=== PATIENT | female | born 1985 | race American Indian/Alaskan Native ===

== ENCOUNTER 2019-08-11 13:34 | Emergency (ER) | payer SELFPAY ==
--- NOTE | 2019-08-11 14:22 | Emergency Department Report ---
Blank Doc - Documentation Documentation: 33-year-old female that presents with upper abdominal pain. This initial assessment/diagnostic orders/clinical plan/treatment(s) is/are subject to change based on patient's health status, clinical progression and re- assessment by fellow clinical providers in the ED. Further treatment and workup at subsequent clinical providers discretion. Patient/guardians urged not to elope from the ED as their condition may be serious if not clinically assessed and managed. Initial orders include: 1- Patient sent to [facility] for further evaluation and treatment 2- labs 3- UA
[2019-08-11 15:24] LABS: Bacteria,Urine 2+ /HPF (Negative); Bilirubin,Urine NEG (Negative); Blood,Urine NEG (Negative); Color,Urine Yellow (Yellow); Mucus,Urine 2+ /HPF; Protein,Urine <15 mg/dL mg/dL (Negative); Urobilinogen,Urine < 2.0 mg/dL (<2.0)
[2019-08-11 15:33] LABS: Hematocrit 30.2 % (30.3-42.9); Hemoglobin 9.2 gm/dl (10.1-14.3); Mean Corpuscular HGB Conc 31 % (30-34); Platelet Count 354 K/mm3 (140-440); Red Blood Count 5.35 M/mm3 (3.65-5.03)
[2019-08-11 15:37] LABS: Mean Corpuscular Volume 56 fl (79-97); Red Cell Distribution Width 22.4 % (13.2-15.2)
[2019-08-11 15:49] LABS: Alanine Aminotransferase 45 units/L (7-56); Albumin 3.9 g/dL (3.9-5); BUN/Creatinine Ratio 13; Blood Urea Nitrogen 8 mg/dL (7-17); Calcium 8.8 mg/dL (8.4-10.2); Hemolysis Index 2
--- NOTE | 2019-08-11 16:32 | Emergency Department Report ---
HPI - General Chief Complaint: Abdominal Pain Time Seen by Provider: 08/11/19 14:21 - HPI HPI: 33-year-old -[place]ag[place] female presents to the emergency department with complaint of a few days of some vaginal irritation, and malodorous vaginal discharge. She denies any fever, nausea, vomiting, dysuria, vaginal bleeding. She has not taken anything for her symptoms prior to presentation. The patient also complains of some sharp pains to the right lower rib cage that has been going on for weeks if not longer. She denies any shortness of breath, fall or trauma. She has not taken anything for her symptoms prior to presentation. No past medical history. No PCP or HAND SEWER. ED Past Medical Hx - Past Medical History Previous Medical History?: No - Surgical History Past Surgical History?: No - Social History Smoking Status: Never Smoker Substance Use Type: Marijuana - Medications Home Medications: Home Medications Medication Instructions Recorded Confirmed Last Taken Type Fluconazole [Diflucan TAB] 150 mg PO ONCE #1 tablet 08/11/19 Unknown Rx Nitrofurantoin [place]/M-Cryst 100 mg PO Q12HR #14 capsule 08/11/19 Unknown Rx [Macrobid CAP] metroNIDAZOLE [Flagyl] 500 mg PO Q12HR #14 tab 08/11/19 Unknown Rx ED Review of Systems ROS: Stated complaint: LOWER ABD PAIN Other details as noted in HPI Comment: All other systems reviewed and negative Constitutional: denies: chills, fever Respiratory: denies: cough, shortness of breath Cardiovascular: denies: palpitations, edema Gastrointestinal: abdominal pain. denies: vomiting Genitourinary: discharge. denies: dysuria Skin: denies: rash, lesions Physical Exam - Physical Exam Physical Exam: GENERAL: The patient is well-developed well-nourished. HEENT: Normocephalic. Atraumatic. Patient has moist mucous membranes. EYES: Extraocular motions are intact. NECK: Supple. Trachea is midline. CHEST/LUNGS: Clear to auscultation. There is no respiratory distress noted. HEART/CARDIOVASCULAR: Regular. There is no tachycardia. ABDOMEN: Abdomen is soft. No tenderness to palpation. No guarding. Patient has normal bowel sounds. There is no abdominal distention. SKIN:Skin is warm and dry. NEURO: The patient is awake, alert, and cooperative. The patient has no focal neurologic deficits. Normal speech. MUSCULOSKELETAL: There is no tenderness or deformity. There is no limitation range of motion. There is no evidence of acute injury. PELVIC: There is moderate malodorous white discharge seen in the vagina. No obvious rash or lesions. ED Course - Reevaluation(s) Reevaluation #1: 08/11/19 20:03 Pelvic examination done with information technology analyst at bedside for assistance and christmas tree contractor. ED Medical Decision Making - Lab Data Result diagrams: 08/11/19 15:07 08/11/19 15:07 - Radiology Data Radiology results: image reviewed interpreted by me: Chest x-ray does not show any pleural effusions, pneumonia, pneumothorax, focal consolidation, or any other acute process. Abdominal x-ray shows nonspecific nonobstructive bowel gas - Medical Decision Making This patient presents with a few days of some vaginal irritation and moderate vaginal discharge. Chaperoned pelvic examination was done and wet prep sent that came back positive for BV. Urinalysis shows a mild urinary tract infe ction. Patient will be discharged on Macrobid and Flagyl and was given a dose of Diflucan at her request. Given referrals for primary care and HAND SEWER. She will return with any worsening of her symptoms or any acute distress. Critical Care Time: No Critical care attestation.: If time is entered above; I have spent that time in minutes in the direct care of this critically ill patient, excluding procedure time. ED Disposition Clinical Impression: Bacterial vaginosis UTI (urinary tract infection) Qualifiers: Urinary tract infection type: acute cystitis Hematuria presence: without hematuria Qualified Code(s): N30.00 - Acute cystitis without hematuria Disposition: TO HOME OR SELFCARE Is pt being admited?: No Condition: Stable Instructions: Bacterial Vaginosis (ED), Abdominal Pain (ED) Additional Instructions: Please follow up with a primary care physician and HAND SEWER. Take the medications as prescribed. Return to the emergency Department with any worsening of your symptoms or any acute distress. The medication prescribed for the bacterial vaginosis, Flagyl/metronidazole, has a very bad reaction if mixed with alcohol any quantity. Prescriptions: Fluconazole [Diflucan TAB] 150 mg PO ONCE #1 tablet metroNIDAZOLE [Flagyl] 500 mg PO Q12HR #14 tab Nitrofurantoin [place]/M-Cryst [Macrobid CAP] 100 mg PO Q12HR #14 capsule Referrals: JEAN PAUL BILLINGSLEY MD [Staff Physician] - 2-3 Days [facility] [Outside] - 2-3 Days [facility] [Provider Group] - 2-3 Days [facility] [Provider Group] - 2-3 Days Forms: STI Treatment and Prevention, Work/School Release Form(ED) Time of Disposition: 16:56
[2019-08-11 16:57] LABS: Anisocytosis 1+; Basophils % (Manual) 0 % (0.0-1.8); Eosinophils % (Manual) 0 % (0.0-4.3); Hypochromasia 2+; Total Cells Counted 100
[2019-08-11 16:58] LABS: Giant Platelets 1+
[2019-08-11 17:38] VITALS: BP 113/64
--- NOTE | 2019-08-11 17:54 | XRay Report ---
ABDOMEN 2 VIEW(S) and PA chest INDICATION / CLINICAL INFORMATION: abd pain. COMPARISON: None available. FINDINGS: CHEST: The cardiomediastinal silhouette is unremarkable. The lungs are clear. There is no pleural eff usion. There is no pneumothorax. TUBES / LINES: None. BOWEL GAS PATTERN: No significant abnormality. FREE AIR / EXTRALUMINAL GAS: None seen. ADDITIONAL FINDINGS: Several partially calcified lesions in the pelvis, the largest measuring up to 5 .8 cm, most compatible with calcified fibroids. IMPRESSION: 1. No acute abnormality. 2. Calcified uterine fibroids. Signer Name: Janel Manriquez MD Signed: 08/11/2019 5:49 PM Workstation Name: [id number]
== END 2019-08-11 18:00 | disposition home or self-care (01) ==
LOC: EDBD → ED 13:34
DX: N76.0 Acute vaginitis (principal); B96.89 Other specified bacterial agents as the cause of diseases classified elsewhere; N39.0 Urinary tract infection, site not specified; F12.10 Cannabis abuse, uncomplicated; Z79.899 Other long term (current) drug therapy
CPT/HCPCS: 36415; 74022; 80053; 81001; 83690; 84703; 85007; 85025; 87086; 87210